=== PATIENT | female | born 1935 | race African-American/Black ===

== ENCOUNTER 2018-07-24 11:04 | Emergency (ER) | payer MEDICARE ==
[~2018-07-24] VITALS: Ht 172.7 cm; Wt 84.3 kg
[2018-07-24] MEDS ORDERED: IOVERSOL 350 MG/ML 150 ML VIAL ONE (11:11)
[2018-07-24] MEDS ORDERED: SODIUM CHLORIDE 0.9% 100 ML ONE (11:11)
[2018-07-24 11:26] LABS: BASOPHILS % (AUTO) 0.5 % (0.0-2.0); EOSINOPHILS % (AUTO) 0.4 % (1.0-6.0); HEMATOCRIT 40.9 % (36-46); HEMOGLOBIN 13.1 g/dL (12.0-16.0); LYMPHOCYTES # (AUTO) 1.1 K/uL (1.0-4.8); LYMPHOCYTES % (AUTO) 9.1 % (22.0-44.0); MEAN CORPUSCULAR HEMOGLOBIN 29.5 pg (26.0-34.0); MEAN CORPUSCULAR HGB CONC 32.2 G/dL (31.0-37.0); MEAN CORPUSCULAR VOLUME 92 fL (80-100); MONOCYTES # (AUTO) 0.6 K/uL (0.1-1.0); MONOCYTES % (AUTO) 4.9 % (2.0-9.0); NEUTROPHILS # (AUTO) 9.8 K/uL (1.8-7.7); NEUTROPHILS % (AUTO) 85.1 % (40.0-70.0); PLATELET COUNT (AUTO) 240 K/uL (150-450); RED BLOOD CELL COUNT(AUTO) 4.45 MIL/uL (4.00-5.20)
[2018-07-24 11:35] LABS: CALCIUM, TOTAL 10.6 mg/dL (8.8-10.5); CREATININE 1.44 mg/dL (0.60-1.30); POTASSIUM 3.6 mmol/L (3.5-5.1)
[2018-07-24 11:36] LABS: PROTHROMBIN TIME 10.3 SEC (9.4-11.6)
[2018-07-24] MEDS ORDERED: LOSA25TA41 PO (11:40)
[2018-07-24 11:42] LABS: ALBUMIN 3.9 g/dL (3.4-5.0); BILIRUBIN,TOTAL 0.5 mg/dL (0.1-1.0); TOTAL PROTEIN, SERUM 7.6 g/dL (6.4-8.2)
[2018-07-24] MEDS: ALTEPLASE PER STROKE PROTOCOL CLINICAL ONE (12:10)
[2018-07-24] MEDS: ALTEPLASE 68.5 MG in WATER FOR INJECTION,STERILE 68.5 ML IV ONE (12:18)
[2018-07-24] MEDS: ALTEPLASE 7.6 MG in WATER FOR INJECTION,STERILE 7.6 ML IV ONE (12:18)
[2018-07-24 13:10] VITALS: BP 145/60
== END 2018-07-24 12:40 | disposition short-term general hospital (02) ==
LOC: EMS 11:04
DX: I63.9 Cerebral infarction, unspecified (principal); I10 Essential (primary) hypertension
CPT/HCPCS: 36415; 37195; 70450; 70496; 71045; 72125; 80053; 82962; 84484; 85025; 85610; 85730; 86850; 86900; 86901; 93005; 99291; J2997; J7050; Q9967